=== PATIENT | male | born 1990 | race Caucasian/White ===

== ENCOUNTER 2017-03-14 21:20 | Emergency (ER) | payer OTHER ==
[~2017-03-14] VITALS: Ht 177.8 cm; Wt 122.7 kg
[~2017-03-14 21:20] MED LIST: BUFEN200 MG; NAPROXEN500 MG PO
[2017-03-14 22:15] VITALS: BP 155/80
== END 2017-03-14 22:15 | disposition home or self-care (01) ==
LOC: ED 21:20
DX: S61.211A Laceration without foreign body of left index finger without damage to nail, initial encounter (principal); W26.0XXA Contact with knife, initial encounter; Y92.009 Unspecified place in unspecified non-institutional (private) residence as the place of occurrence of the external cause
CPT/HCPCS: 13375; 5930; A4550

== ENCOUNTER 2017-03-22 02:03 | Emergency (ER) | payer OTHER ==
[~2017-03-22] VITALS: Ht 177.8 cm; Wt 100.0 kg
[2017-03-22 03:45] LABS: EOS # 0.1 (0.04-0.40); EOS % 0.9 % (0.0-4.0); HEMATOCRIT 42.2 % (42.0-52.0); HEMOGLOBIN 14.3 g/dL (13.5-18.0); LYMPH# 2.2 (1.50-4.00); MEAN CELL VOLUME 91 fl (78-100); MEAN CORPUSCULAR HEMOGLOBIN 31 pg (27-31); MEAN CORPUSCULAR HGB CONC 34 g/dL (33-37); MEAN PLATELET VOLUME 10.7 fl (7.4-10.4); MONO # 1.1 (0.20-0.80); NEU # 6.4 (1.40-6.50); PLATELET COUNT 248 K/mm3 (130-400); RED BLOOD COUNT 4.65 M/mm3 (4.20-5.60); RED CELL DISTRIBUTION WIDTH 12.9 % (11.5-14.5); WHITE BLOOD COUNT 9.8 K/mm3 (4.8-10.8)
[2017-03-22 03:57] LABS: ALBUMIN 3.9 g/dL (3.5-5.0); ALT/SGPT 32 U/L (21-72); AST-SGOT 22 U/L (17-59); BUN/CREATININE RATIO 12.8 (6.0-26.0); CARBON DIOXIDE 25 mmol/L (22-30); GLUCOSE 98 mg/dL (75-110); POTASSIUM 3.5 mmol/L (3.6-5.0); SODIUM 140 mmol/L (137-145); TOTAL BILIRUBIN 0.3 mg/dL (0.2-1.3); TOTAL PROTEIN 6.8 g/dL (6.3-8.2)
[2017-03-22 03:58] LABS: ACETAMINOPHEN < 4 ug/mL (10-30); ALCOHOL IN-HOUSE < 10 mg/dL
[2017-03-22 11:50] VITALS: BP 121/70
== END 2017-03-22 11:57 ==
LOC: ED 02:03
PROVIDERS: Family Medicine
DX: F32.9 Major depressive disorder, single episode, unspecified (principal); R45.851 Suicidal ideations

== ENCOUNTER 2017-05-13 13:41 | Emergency (ER) | payer OTHER ==
[~2017-05-13] VITALS: Ht 177.8 cm; Wt 113.6 kg
[2017-05-13] MEDS ORDERED: TRILEPTAL 300M300 MG PO (13:50)
[2017-05-13] MEDS ORDERED: AMBIEN10 MG PO (13:50)
[2017-05-13 14:36] LABS: EOS # 0.2 (0.04-0.40); EOS % 2.2 % (0.0-4.0); HEMOGLOBIN 13.7 g/dL (13.5-18.0); LYMPH# 1.8 (1.50-4.00); MEAN CELL VOLUME 93 fl (78-100); MEAN CORPUSCULAR HEMOGLOBIN 31 pg (27-31); MEAN CORPUSCULAR HGB CONC 33 g/dL (33-37); MEAN PLATELET VOLUME 10.4 fl (7.4-10.4); MONO # 0.9 (0.20-0.80); NEU # 6.6 (1.40-6.50); PLATELET COUNT 213 K/mm3 (130-400); RED BLOOD COUNT 4.43 M/mm3 (4.20-5.60); WHITE BLOOD COUNT 9.5 K/mm3 (4.8-10.8)
[2017-05-13 14:50] LABS: ALBUMIN 3.7 g/dL (3.5-5.0); BUN/CREATININE RATIO 20.4 (6.0-26.0); CALCIUM 9.2 mg/dL (8.4-10.2); POTASSIUM 4.1 mmol/L (3.6-5.0); TOTAL BILIRUBIN 0.2 mg/dL (0.2-1.3); TOTAL PROTEIN 6.5 g/dL (6.3-8.2)
[2017-05-13 16:40] VITALS: BP 132/79
[2017-05-13 17:44] LABS: PH-URINE 5.5 (5.0 - 8.0); URINE APPEARANCE HAZY; URINE BILIRUBIN NEGATIVE (NEGATIVE); URINE BLOOD NEGATIVE (NEGATIVE); URINE COLOR YELLOW; URINE GLUCOSE NEGATIVE (NEGATIVE); URINE KETONE NEGATIVE (NEGATIVE); URINE LEUKOCYTE ESTERASE NEGATIVE (NEGATIVE); URINE NITRATE NEGATIVE (NEGATIVE); URINE PROTEIN(semi-quant) NEGATIVE (NEGATIVE); URINE UROBILINOGEN NORMAL (NORMAL)
== END 2017-05-13 16:40 | disposition short-term general hospital (02) ==
LOC: ED 13:41
PROVIDERS: Physician Assistant
DX: N48.30 Priapism, unspecified (principal); F32.9 Major depressive disorder, single episode, unspecified; F41.9 Anxiety disorder, unspecified; G47.00 Insomnia, unspecified; F17.210 Nicotine dependence, cigarettes, uncomplicated
CPT/HCPCS: J7030

== ENCOUNTER 2017-09-04 20:04 | Emergency (ER) | payer OTHER ==
[~2017-09-04] VITALS: Ht 177.8 cm; Wt 108.7 kg
[~2017-09-04 20:04] MED LIST changes: +AMBIEN10 MG PO; +TRILEPTAL 300M300 MG PO
[2017-09-04 23:20] VITALS: BP 129/85
== END 2017-09-04 23:20 | disposition home or self-care (01) ==
LOC: ED 20:04
DX: F43.9 Reaction to severe stress, unspecified (principal); Z86.59 Personal history of other mental and behavioral disorders